=== PATIENT | male | born 1995 | race Two or more races ===

== ENCOUNTER 2018-11-12 12:01 | Emergency (ER) | payer OTHER ==
[2018-11-12] MEDS ORDERED: PSEUDOEPHEDRINE HCL 30 MG TABLET PO ONE (12:09)
--- NOTE | 2018-11-12 12:12 | ER Document Report ---
ED Medical Screen (RME) - General Chief Complaint: Fever Stated Complaint: FEVER Time Seen by Provider: 11/12/18 12:06 Mode of Arrival: Ambulatory Information source: Patient Notes: This 23-year-old male presents to the emergency department with complaints of low-grade temp this morning with a headache. He took Motrin. Denies pain at this time. Denies vomiting diarrhea. Denies rash. Reports he is eating drinking voiding bowel movement as normal. Reports he had a pressure headache behind his eyes but that is gone now. Reports his made him come. Dictation of this chart was performed using voice recognition software; therefore, there may be some unintended grammatical errors. I have greeted and performed a rapid initial assessment of this patient. A comprehensive ED assessment and evaluation of the patient, analysis of test results and completion of the medical decision making process will be conducted by additional ED providers. - Related Data Allergies/Adverse Reactions: No Known Allergies Allergy (Verified 11/12/18 12:05) Past Medical History - Social History Chew tobacco use (# tins/day): No Frequency of alcohol use: None Drug Abuse: None Physical Exam - Vital signs Vitals: Temp Pulse Resp BP Pulse Ox 98.1 F 70 16 140/64 H 98 11/12/18 12:05 11/12/18 12:05 11/12/18 12:05 11/12/18 12:05 11/12/18 12:05 Course - Vital Signs Vital signs: Temp Pulse Resp BP Pulse Ox 98.1 F 70 16 140/64 H 98 11/12/18 12:05 11/12/18 12:05 11/12/18 12:05 11/12/18 12:05 11/12/18 12:05
--- NOTE | 2018-11-12 13:44 | ER Document Report ---
HPI - HPI Time Seen by Provider: 11/12/18 12:06 Pain Level: Denies Context: Patient is a 23-year-old male with no past medical history that presents to the emergency department with a chief complaint of feeling sluggish. He had a fever of 101 this morning and took some ibuprofen. He was feeling sluggish yesterday. He states that his told him to come in to get checked. - CONSTITUTIONAL Constitutional: REPORTS: Fever - EENT EENT: DENIES: Sore Throat, Ear Pain, Nasal Drainage-Clear, Nasal Drainage- Purulent, Congestion - NEURO Neurology: REPORTS: Headache - CARDIOVASCULAR Cardiovascular: DENIES: Chest pain - RESPIRATORY Respiratory: DENIES: Trouble Breathing, Coughing - GASTROINTESTINAL Gastrointestinal: DENIES: Abdominal Pain, Nausea, Patient vomiting - MUSCULOSKELETAL Musculoskeletal: DENIES: Extremity pain - DERM Skin Color: Normal Skin Problems: None Past Medical History - General Information source: Patient - Social History Smoking Status: Never Smoker Chew tobacco use (# tins/day): No Frequency of alcohol use: None Drug Abuse: None Family History: Reviewed & Not Pertinent Patient has suicidal ideation: No Patient has homicidal ideation: No Vertical Provider Document - CONSTITUTIONAL Agree With Documented VS: Yes Exam Limitations: No Limitations General Appearance: No Apparent Distress - HEENT HEENT: Atraumatic, Normocephalic, PERRLA, Pharyngeal Erythema, Tympanic Membrane Red - Right. negative: Pharyngeal Exudate, Pharyngeal Tenderness, Tympanic Membrane Bulging - NECK Neck: Normal Inspection. negative: Lymphadenopathy-Left, Lymphadenopathy-Right - RESPIRATORY Respiratory: Breath Sounds Normal, No Respiratory Distress - CARDIOVASCULAR Cardiovascular: Regular Rate, Regular Rhythm - MUSCULOSKELETAL/EXTREMETIES Musculoskeletal/Extremeties: FROM - NEURO Level of Consciousness: Awake, Alert, Appropriate Motor/Sensory: No Motor Deficit, No Sensory Deficit - DERM Integumentary: Warm, Dry, No Rash Course - Re-evaluation Re-evalutation: 11/12/18 13:45 Presentation is most consistent with an acute otitis media. Clinical history as well as exam is most consistent with this diagnosis. Based on history and examination do not suspect an acute meningitis, encephalitis, peritonsillar abscess, or retropharyngeal abscess. Patient is otherwise well in appearance, no acute distress. Vitals otherwise within normal limits. The patient will be started on amoxicillin twice a day for 10 days. At this time will discharge with return precautions and follow-up recommendations. Verbal discharge instructions given a the bedside to the parents and opportunity for questions given. Medication warnings reviewed. Patient is agreement with this plan and has verbalized understanding of return precautions and the need for primary care follow-up in the next 24-72 hours. - Vital Signs Vital signs: Temp Pulse Resp BP Pulse Ox 98.1 F 70 16 140/64 H 98 11/12/18 12:05 11/12/18 12:05 11/12/18 12:05 11/12/18 12:05 11/12/18 12:05 Discharge - Discharge Clinical Impression: Right otitis media Qualifiers: Otitis media type: mucoid Chronicity: acute Qualified Code(s): H65.111 - Acute and subacute allergic otitis media (mucoid) (sanguinous) (serous), right ear Condition: Stable Disposition: HOME, SELF-CARE Additional Instructions: You were seen today for ear pain and have an acute ear infection. Please take the antibiotic that has been prescribed until it is completed even if you are feeling better before you have finished all the antibiotics. For your pain: Take ibuprofen 600 mg and acetaminophen 1000 mg every 6 hours together as needed for pain. Return if you have worsening of your pain, loss of hearing in the affected ear, worsening facial pain, headaches, pass out, or any other symptoms that are worrisome to you. Please follow-up with your PCM in 3 to 5 days in regards to this visit. Prescriptions: Amoxicillin Trihydrate [Amoxil 875 mg Tablet] 1 tab PO BID #20 tablet
[2018-11-12 13:59] VITALS: BP 138/62
== END 2018-11-12 13:50 | disposition home or self-care (01) ==
LOC: ER 12:01
DX: H65.111 Acute and subacute allergic otitis media (mucoid) (sanguinous) (serous), right ear (principal); R51 Headache; R50.9 Fever, unspecified
CPT/HCPCS: 99283

== ENCOUNTER 2018-11-30 16:41 | Emergency (ER) | payer OTHER ==
--- NOTE | 2018-11-30 16:56 | ER Document Report ---
ED Medical Screen (RME) - General Stated Complaint: GROIN PAIN, RIGHT SHOULDER PAIN Time Seen by Provider: 11/30/18 16:50 Mode of Arrival: Ambulatory Information source: Patient Notes: This 23-year-old male presents emergency department with right inguinal pain. Reports he did a 10 mile hike today and started having pain afterwards. Denies injury. Denies testicular pain. Also reports right shoulder pain for the past 2 years. Reports pain comes and goes. Been seen by the his [facility] and they will not do an MRI. Denies recent traumas. I have greeted and performed a rapid initial assessment of this patient. A comprehensive ED assessment and evaluation of the patient, analysis of test results and completion of the medical decision making process will be conducted by additional ED providers. Dictation of this chart was performed using voice recognition software; therefore, there may be some unintended grammatical errors. TRAVEL OUTSIDE OF THE [place] IN LAST 30 DAYS: No - Related Data Allergies/Adverse Reactions: No Known Allergies Allergy (Verified 11/30/18 16:50) Past Medical History Renal/ Medical History: Denies: Hx Peritoneal Dialysis Physical Exam - Vital signs Vitals: Temp Pulse Resp BP Pulse Ox 98.6 F 77 18 114/51 L 98 11/30/18 16:46 11/30/18 16:46 11/30/18 16:46 11/30/18 16:46 11/30/18 16:46 Course - Vital Signs Vital signs: Temp Pulse Resp BP Pulse Ox 98.6 F 77 18 114/51 L 98 11/30/18 16:46 11/30/18 16:46 11/30/18 16:46 11/30/18 16:46 11/30/18 16:46
--- NOTE | 2018-11-30 17:26 | ER Document Report ---
ED General - General Chief Complaint: Groin Pain Stated Complaint: GROIN PAIN, RIGHT SHOULDER PAIN Time Seen by Provider: 11/30/18 16:50 Mode of Arrival: Ambulatory TRAVEL OUTSIDE OF THE [place] IN LAST 30 DAYS: No - HPI Notes: 23-year-old male to the emergency department with complaints of right-sided groin pain that started today after going on a 10 mile hike. He states that he was carrying a pack and that they were going up and down a lot of's inclined areas. He states that he felt fine entire hike and does not remember injuring the area. However after he was done with the hike he started to have pain. He states that he feels like there might be a little bulge in his right inguinal area. He has never had a history of inguinal hernias. He denies any testicular pain. He denies scrotal swelling. He denies urinary retention. He denies any fevers or chills. He also reports chronic right shoulder pain for the past 2 years. He states that he is being evaluated for shoulder pain through the and he has had physical therapy. He states that he is requesting for an MRI but has not been done yet. He denies any new injury to the shoulder. He is not taking anything for the shoulder. - Related Data Allergies/Adverse Reactions: No Known Allergies Allergy (Verified 11/30/18 16:50) Past Medical History - General Information source: Patient - Social History Smoking Status: Never Smoker Chew tobacco use (# tins/day): No Frequency of alcohol use: None Drug Abuse: None Family History: Reviewed & Not Pertinent Patient has suicidal ideation: No Patient has homicidal ideation: No Renal/ Medical History: Denies: Hx Peritoneal Dialysis Review of Systems - Review of Systems Constitutional: denies: Chills, Fever EENT: No symptoms reported Cardiovascular: denies: Chest pain, Palpitations, Heart racing, Dyspnea, Syncope, Dizziness Respiratory: denies: Cough, Short of breath Gastrointestinal: Abdominal pain - right groin pain. denies: Diarrhea, Nausea, Vomiting Genitourinary: See HPI. denies: Frequency, Flank pain, Hematuria, Incontinence, Retention Musculoskeletal: denies: Back pain, Neck pain Skin: No symptoms reported Hematologic/Lymphatic: No symptoms reported -: Yes All other systems reviewed and negative Physical Exam - Vital signs Vitals: Temp Pulse Resp BP Pulse Ox 98.6 F 77 18 114/51 L 98 11/30/18 16:46 11/30/18 16:46 11/30/18 16:46 11/30/18 16:46 11/30/18 16:46 Interpretation: Normal - General General appearance: Appears well, Alert - HEENT Head: Normocephalic, Atraumatic Eyes: Normal Pupils: PERRL - Respiratory Respiratory status: No respiratory distress Chest status: Nontender Breath sounds: Normal Chest palpation: Normal - Cardiovascular Rhythm: Regular Heart sounds: Normal auscultation Murmur: No - Abdominal Inspection: Normal Distension: No distension Bowel sounds: Normal Tenderness: Tender - there is significant TTP over the right pelvic abdomen and into the right groin. Patient reports possible swelling to the area, but no evidence of swelling. Do not appreciate a hernia at this time. no testicular pain. - Back Back: Normal, Nontender - Neurological Neuro grossly intact: Yes Cognition: Normal Orientation: AAOx4 [place] Coma Scale Eye Opening: Spontaneous [place] Coma Scale Verbal: Oriented [place] Coma Scale Motor: Obeys Commands [place] Coma Scale Total: 15 Speech: Normal Motor strength normal: LUE, RUE, LLE, RLE Sensory: Normal - Psychological Associated symptoms: Normal affect, Normal mood - Skin Skin Temperature: Warm Skin Moisture: Dry Skin Color: Normal Course - Re-evaluation Re-evalutation: 12/03/18 Impression: Right groin strain. No hernia seen on CT or on exam, there is no appendicitis. Will send patient home with muscle relaxant and pain meds. HE agrees with the plan. urged to return if worse. - Vital Signs Vital signs: Temp Pulse Resp BP Pulse Ox 98.2 F 75 15 124/74 99 11/30/18 19:40 11/30/18 19:40 11/30/18 19:40 11/30/18 19:40 11/30/18 19:40 - Laboratory Result Diagrams: 11/30/18 17:56 11/30/18 17:56 Laboratory results interpreted by me: 11/30/18 17:56 Lymphocytes % (Manual) 12 L Monocytes % (Manual) 14 H - Diagnostic Test Radiology reviewed: Image reviewed, Reports reviewed Discharge - Discharge Clinical Impression: Right groin pain, Strain of muscle of right groin region Condition: Stable Disposition: HOME, SELF-CARE Instructions: Muscle Strain ([facility]) Additional Instructions: Take medicines as prescribed. Rest, apply ice three times a day for 20 minutes. No intense physical activity for 1 week. Follow up with clinic. Prescriptions: Cyclobenzaprine HCl [Flexeril 10 mg Tablet] 10 mg PO TID #21 tablet Ketorolac Tromethamine [Toradol 10 mg Tablet] 10 mg PO Q8H PRN #30 tablet PRN Reason: Forms: Return to Work
[2018-11-30] MEDS ORDERED: KETOROLAC TROMETHAMINE INJ/PF 30 MG/1 ML SDV IV ONE (17:38)
[2018-11-30 18:20] LABS: HEMATOCRIT 41.5 % (37.9-51.0); HEMOGLOBIN 13.9 g/dL (13.5-17.0); MEAN CORPUSCULAR HEMOGLOBIN 28.7 pg (27.0-33.4); MEAN CORPUSCULAR HGB CONC 33.4 g/dL (32.0-36.0); MEAN CORPUSCULAR VOLUME 86 fl (80-97); PLATELET COUNT 272 10^3/uL (150-450); RED BLOOD COUNT 4.83 10^6/uL (4.35-5.55); RED CELL DISTRIBUTION WIDTH 12.6 % (11.5-14.0)
[2018-11-30 18:34] LABS: ANION GAP 8 (5-19); BLOOD UREA NITROGEN 15 mg/dL (7-20); CALCIUM 9.1 mg/dL (8.4-10.2); CARBON DIOXIDE 28 mmol/L (22-30); CHLORIDE 102 mmol/L (98-107); GLUCOSE 80 mg/dL (75-110); POTASSIUM 4.1 mmol/L (3.6-5.0)
[2018-11-30 18:48] LABS: ABSOLUTE LYMPHOCYTES# (MANUAL) 3.4 10^3/uL (0.5-4.7); ABSOLUTE MONOCYTES # (MANUAL) 1.3 10^3/uL (0.1-1.4); BASOPHILS % (MANUAL) 0 % (0-2); EOSINOPHILS % (MANUAL) 0 % (0-6); LYMPHOCYTES % (MANUAL) 12 % (13-45); MONOCYTES % (MANUAL) 14 % (3-13); SEGMENTED NEUTROPHILS % (MAN) 48 % (42-78); TOTAL CELLS COUNTED 100
[2018-11-30 18:55] LABS: PLATELET COMMENT ADEQUATE; RBC MORPHOLOGY COMMENT NORMO-CYTIC/CHROMIC; SMUDGE CELLS PRESENT
--- NOTE | 2018-11-30 19:11 | RADIOLOGY REPORT (SQ) ---
EXAM DESCRIPTION: CT ABD/PELVIS WITH IV ONLY COMPLETED DATE/TIME: 11/30/2018 6:43 pm REASON FOR STUDY: groin pain COMPARISON: None. TECHNIQUE: CT scan of the abdomen and pelvis performed using helical scanning technique with dynamic intravenous contrast injection. No oral contrast. Images reviewed with lung, soft tissue, and bone windows. Reconstructed coronal and sagittal MPR images reviewed. Delayed images for evaluation of the urinary system also acquired. All images stored on PACS. All CT scanners at this facility use dose modulation, iterative reconstruction, and/or weight based d osing when appropriate to reduce radiation dose to as low as reasonably achievable (ALARA). [facility]: Dose Right [facility]: CareDose [facility]: Dose Right [facility]: Teradose 4D [facility]: Medical Referral Source CONTRAST TYPE AND DOSE: Contrast/concentration: Isovue 350.00 mg/ml; Total Contrast Delivered: 88.0 ml; Total Saline Delivered: 70.0 ml RENAL FUNCTION: GFR > 60. RADIATION DOSE: CT Rad equipment meets quality standard of care and radiation dose reduction techniq ues were employed. CTDIvol: 7.1 - 10.0 mGy. DLP: 963 mGy-cm.. LIMITATIONS: None. FINDINGS: LOWER CHEST: No acute findings. LIVER: The liver morphology is non cirrhotic. The portal and hepatic veins are patent. There is no hepatic mass SPLEEN: The spleen is normal in size. There are accessory splenic in the left upper quadrant anterio r to the spleen and in the splenic hilum. PANCREAS: No acute abnormality of the pancreas. GALLBLADDER: No abnormality that is apparent on CT. ADRENAL GLANDS: No abnormality. RIGHT KIDNEY AND URETER: No solid masses. No calcifications. No hydronephrosis or hydroureter. LEFT KIDNEY AND URETER: No solid masses. No calcifications. No hydronephrosis or hydroureter. AORTA AND VESSELS: No aneurysmal dilatation or dissection of the abdominal aorta. RETROPERITONEUM: No retroperitoneal adenopathy, hemorrhage or mass. BOWEL AND PERITONEAL CAVITY: No acute findings. APPENDIX: Normal. PELVIS: The urinary bladder is distended and normal in appearance. The prostate gland is normal in s ize. There is no pelvic adenopathy, free fluid or mass ABDOMINAL WALL: No masses or hernias BONES: No acute findings. OTHER: No other finding. IMPRESSION: No acute intra-abdominal abnormality. TECHNICAL DOCUMENTATION: JOB ID: [id number] Quality ID # [id number]: Final reports with documentation of one or more dose reduction techniques (e.g., Au tomated exposure control, adjustment of the mA and/or kV according to patient size, use of iterative reconstruction technique) 2010 [employer]- All Rights Reserved Reading location - IP/workstation name: [email or web address]
[2018-11-30 19:41] VITALS: BP 124/74
[2018-12-01 12:03] LABS: PATH REVIEW PATHOLOGIST REVIEWED
== END 2018-11-30 19:41 | disposition home or self-care (01) ==
LOC: ER 16:41
DX: S39.011A Strain of muscle, fascia and tendon of abdomen, initial encounter (principal); X58.XXXA Exposure to other specified factors, initial encounter; M25.511 Pain in right shoulder; G89.29 Other chronic pain
CPT/HCPCS: 99284; 96374; 36415; 85025; 80048; 74177; J1885